=== PATIENT | male | born 1995 | race African-American/Black ===

== ENCOUNTER 2016-11-12 14:18 | Emergency (ER) | payer SELFPAY ==
[~2016-11-12] VITALS: Ht 180.3 cm; Wt 75.0 kg
[2016-11-12 14:22] VITALS: PULSE 112; RESP 24
[2016-11-12] MEDS ORDERED: LORazepam 2 MG/ML VIAL IV PUSH ONE (14:45)
[2016-11-12] MEDS ORDERED: MORPHINE SULFATE 4 MG/ML INJ IV PUSH ONE (14:45)
[2016-11-12 14:52] LABS: AUTOMATED NEUTROPHIL # 4.8 TH/MM3 (1.8-7.7); BASOPHIL % 0.3 % (0.0-2.0); EOSINOPHIL # 0.1 TH/MM3 (0-0.4); EOSINOPHIL % 0.7 % (0.0-4.0); HEMATOCRIT 47.5 % (39.0-51.0); HEMO FLAGS DIFF FINAL; LYMPHOCYTE # 2.9 TH/MM3 (1.0-4.8); MEAN CELL VOLUME 82.2 FL (80.0-100.0); MEAN CORPUSCULAR HEMOGLOBIN 26.9 PG (27.0-34.0); MEAN CORPUSCULAR HGB CONC 32.7 % (32.0-36.0); MONO % 8.8 % (0.0-8.0); NEUT % 56.2 % (16.0-70.0); PLATELET COUNT 199 TH/MM3 (150-450); RED BLOOD COUNT 5.78 MIL/MM3 (4.50-5.90); WHITE BLOOD COUNT 8.5 TH/MM3 (4.0-11.0)
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
[2016-11-12] MEDS ORDERED: IOHEXOL 350 MG/ML 10 ML VIAL (for RAD DIAG) IV ONE (15:12)
[2016-11-12 15:19] LABS: ALKALINE PHOSPHATASE 73 U/L (45-117); ALT (GPT) 17 U/L (12-78); TOTAL BILIRUBIN ADULT 0.8 MG/DL (0.2-1.0)
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
[2016-11-12 15:29] LABS: ANION GAP 13 MEQ/L (5-15); AST (GOT) 18 U/L (15-37); BICARBONATE 26.4 MEQ/L (21.0-32.0); BLOOD UREA NITROGEN 10 MG/DL (7-18); CHLORIDE 104 MEQ/L (98-107); GLOMERULAR FILTRATION RATE 80 ML/MIN (>89); POTASSIUM 3.8 MEQ/L (3.5-5.1); SODIUM (NA) 143 MEQ/L (136-145)
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
[2016-11-12 15:57] VITALS: BP 137/71; PULSE 71; RESP 20; TEMP 98.3; O2SAT 98
[2016-11-12] MEDS ORDERED: IBUP-232 PO (16:00)
[2016-11-12] MEDS ORDERED: ACETAMINOPHEN/HYDROcodone 325 MG/5 MG TAB PO ONE (16:30)
[2016-11-12 16:54] VITALS: BP 110/62
== END 2016-11-12 16:55 | disposition home or self-care (01) ==
LOC: NEPE 14:18
DX: S40.212A Abrasion of left shoulder, initial encounter (principal); S80.212A Abrasion, left knee, initial encounter; S90.512A Abrasion, left ankle, initial encounter; S93.402A Sprain of unspecified ligament of left ankle, initial encounter; J45.909 Unspecified asthma, uncomplicated; R06.00 Dyspnea, unspecified; V89.0XXA Person injured in unspecified motor-vehicle accident, nontraffic, initial encounter; Y93.I9 Activity, other involving external motion; Y92.410 Unspecified street and highway as the place of occurrence of the external cause
CPT/HCPCS: 70450; 71010; 71260; 72125; 73560; 73590; 73610; 74177; 80053; 85025; 96374; 96375; 99285; J2060; J2270; L0150; Q9967

== ENCOUNTER 2016-11-21 15:36 | Emergency (ER) | payer SELFPAY ==
[~2016-11-21] VITALS: Ht 180.3 cm; Wt 80.5 kg
[~2016-11-21 15:36] MED LIST: IBUP-232 PO
[2016-11-21 15:37] VITALS: BP 151/67; PULSE 108; RESP 18; TEMP 97.4; O2SAT 100
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
== END 2016-11-21 18:13 | disposition home or self-care (01) ==
LOC: NEPD 15:36
DX: M25.562 Pain in left knee (principal); J45.909 Unspecified asthma, uncomplicated; V89.2XXD Person injured in unspecified motor-vehicle accident, traffic, subsequent encounter
CPT/HCPCS: 73564; 99283